=== PATIENT | male | born 1955 | race Caucasian/White ===

== ENCOUNTER 2018-10-30 18:01 | Observation (INO) | payer OTHER ==
[2018-10-30 19:48] LABS: Troponin I Less than 0.010 ng/mL (< 0.028)
[2018-10-30] MEDS ORDERED: Acetaminophen 325 MG TAB ONE (21:59)
[2018-10-30 22:09] LABS: Troponin I 0.017 ng/mL (< 0.028)
[2018-10-31] MEDS ORDERED: Ondansetron PF 4 MG/2 ML Vial IVP PRN (00:52)
[2018-10-31] MEDS: Acetaminophen 325 MG TAB PO PRN ×2 (01:36→10:02)
[2018-10-31 01:58] VITALS: BMI 29.7
[2018-10-31 04:59] LABS: #Eosinphils 0.1 thou/uL (0.0-0.7); #Lymphocytes 1.2 thou/uL (1.20-3.40); #Monocytes 0.7 thou/uL (0.11-0.59); #Neutrophils 3.2 thou/uL (1.40-6.50); %Basophils 0.2 % (0.0-1.0); %Eosinophils 1.2 % (0.0-10.0); %Lymphocytes 22.6 % (21.0-51.0); %Neutrophils 62.9 % (42.0-75.0); Hemoglobin 13.7 g/dL (14.0-18.0); Mean Corpuscular Hemoglobin 32.8 pg (27.0-31.0); Mean Corpuscular Volume 96.5 fL (78.0-98.0); Mean Platelet Volume 7.3 fL (7.4-10.4); Platelet Count 206 thou/uL (130-400); RBC Distribution Width 12.9 % (11.5-14.5); Red Blood Cell (RBC) Count 4.18 mill/uL (4.70-6.10); White Blood Cell (WBC) Count 5.1 thou/uL (4.8-10.8)
[2018-10-31 05:16] LABS: Anion Gap 12 mmol/L (10-20); BUN (Urea Nitrogen) 16 mg/dL (8.4-25.7); Calc. Creatinine Clearance 134 mL/min (70-130); Carbon Dioxide 26 mmol/L (23-31); Cardiac Risk 2.3 (Less than 4.5); Chloride 102 mmol/L (98-107); Cholesterol 154 mg/dl (< 200 Desired); Estimated GFR-MDRD Greater than 90; Glucose 188 mg/dL (80-115); HDL Cholesterol 66 mg/dL (>60 Neg Risk); LDL Cholesterol, Calculated 69 mg/dL; Potassium 3.5 mmol/L (3.5-5.1); Sodium 136 mmol/L (136-145); Triglycerides 93 mg/dL (Less than 150)
[2018-10-31] MEDS ORDERED: Dextrose 50% Abboject 50 ML SYRINGE SLOW IVP PRN (05:16)
[2018-10-31] MEDS ORDERED: Dextrose 5% in Water 1,000 ML IV PRN (05:16)
[2018-10-31] MEDS ORDERED: HumaLOG 300 UNITS/3 ML VIAL SC PRN (05:16)
[2018-10-31] MEDS ORDERED: Polyethylene Glycol 3350 17 GM Packet PO PRN (05:18)
[2018-10-31] MEDS ORDERED: Loratadine 10 MG TAB PO PRN (05:30)
[2018-10-31] MEDS ORDERED: Aspirin 325 mg Enteric Coated Tablet PO SCH (09:00)
[2018-10-31] MEDS ORDERED: Enoxaparin Sodium 40 MG/0.4 ML SYRINGE SC SCH (09:00)
[2018-10-31] MEDS ORDERED: Ezetimibe 10 MG TAB PO SCH (09:00)
[2018-10-31] MEDS ORDERED: Aspirin 325 MG TAB PO SCH (09:00)
[2018-10-31] MEDS ORDERED: OXCARBAZEPINE 1800 MG PO SCH (09:00)
[2018-10-31] MEDS ORDERED: Fenofibrate Nanocrystallized 145 MG TAB PO SCH (09:00)
[2018-10-31 11:47] VITALS: TEMP 97.9
[2018-10-31 15:39] VITALS: BP 196/91
--- NOTE | 2018-10-31 16:08 | ULT ---
CAROTID ARTERIAL DOPPLER ULTRASOUND: 10/31/18 COMPARISON: None. HISTORY: Neck pain, right sided arm weakness. TECHNIQUE: Multiplanar rangel scale sonographic imaging of the arterial structures of the neck obtained with color flow and spectral analysis. FINDINGS: Antegrade blood flow and normal arterial waveforms are documented within the carotid and vertebral sy stem bilaterally. Partially calcified plaque within distal right CCA/proximal right ICA. There is atherosclerotic calci fication within proximal left internal carotid artery and distal left common carotid artery as well. There is prominent partially calcified plaque involving the proximal left ICA. VESSEL PSV (cm/s) EDV (cm/s) Right CCA 97 15 Right ICA 128 27 Right ECA 110 13 Left CCA 120 20 Left ICA 227 47 Left ECA 122 13 ICA/CCA ratio is 1.0 on the right and 2.3 on the left. IMPRESSION: Elevated velocity within left internal carotid artery with elevated left ICA/CCA ratio. This is consi stent with high grade stenosis of left internal carotid artery which is better assessed on CT angiogr am of the neck performed 10/30/18. Vascular surgery consultation suggested. POS: SANJU
--- NOTE | 2018-10-31 16:10 | HP ---
PRIMARY CARE DOCTOR: Out of town physician. CODE STATUS: Full code. TIME OF EVALUATION: Around 12 a.m. CHIEF COMPLAINT: Right hand weakness. HISTORY OF PRESENT ILLNESS: This is a 63-year-old male patient with past medical history of diabetes, neuropathy, hypertension, kidney cancer, came to the hospital after having severe right upper extremity weakness, with no clear triggers, no alleviating factors. The patient reported that it seems to be started around 10 a.m., and has been presenting now, seems this has been improved though. There are no other significant associated symptoms, but numbness. REVIEW OF SYSTEMS: CONSTITUTIONAL: No fever, chills, or generalized weakness. RESPIRATORY: No cough, sputum production, or shortness of breath. CARDIOVASCULAR: No chest pain or palpitation. GASTROINTESTINAL: No nausea. No vomiting. No diarrhea. No abdominal pain. SITE MEDICAL DIRECTOR: The patient has no dizziness, headache, or feeling lightheaded. The patient has right hand weakness that has improved. GENITOURINARY: No burning on urination. EXTREMITIES: No leg swelling. All other systems were reviewed and negative expect for the findings as mentioned above. PAST MEDICAL HISTORY: As mentioned in the HPI. FAMILY HISTORY: The patient reported that both mother and father with heart problems and mother with hypertension. SURGICAL HISTORY: History of nephrectomy and carotid surgery. PSYCHIATRIC HISTORY: No psych history. SOCIAL HISTORY: No alcohol. No drugs. No smoking history. ALLERGIES: PHENOBARBITAL. REPORTED MEDICATIONS: 1. Claritin. 2. Aspirin. 3. Zetia. 4. Fenofibrate. 5. Gabapentin. 6. Losartan. 7. Oxtellar. 8. Levemir. 9. NovoLog. PHYSICAL EXAMINATION: VITAL SIGNS: Blood pressure 171/99 with a heart rate 72, respiratory rate of 20, pain was 4/10, and oxygen saturation 97% on room air. GENERAL APPEARANCE: The patient is alert, oriented, not in acute distress. HEENT: Eyes, normal conjunctivae. Moist oral mucosa. Anicteric. No JVD. RESPIRATORY: Bilateral air entry. No rales. No wheezing. Symmetric expansion. CARDIOVASCULAR: Normal rate. Regular rhythm. No murmurs. No gallops. No edema. ABDOMEN: Soft. Normal bowel sounds. MUSCULOSKELETAL: Baseline range of motion and strength. No tenderness. SKIN: Warm and intact. No burn or rash. No redness. EXTREMITIES: Peripheral pulses are present. Capillary refill seems to be intact. NEURO: The patient has right upper extremity weakness with change in sensory and sensation. Baseline speech. Cranial nerves seems to be intact. Symptoms reportedly improving. PSYCHIATRIC: The patient is in good mood. No anxiety. Oriented. Optimal judgment. DIAGNOSTIC DATA: Chest x-ray, no evidence of acute cardiopulmonary disease. Brain CT, no acute intracranial abnormalities. CT angiography, atherosclerosis, high-grade stenosis within the proximal left internal carotid artery. LABORATORY DATA: Labs were reviewed. His white count 5.1, hemoglobin 13.7, MCV 96.5, and platelet count 206. Troponin was negative x2. Chemistry: Sodium 138, potassium 3.4, chloride 103, carbon-dioxide 36, anion gap 12, BUN 18, creatinine 0.8. GFR greater than 90. Glucose 103, calcium 9.3, total bilirubin 0.5, AST 46, ALT 33, alkaline phosphatase 140. CK 67, troponin 0.017, CK-MB 1.0. Serum total protein 7.3, albumin 4.1, globulin 3.2. Albumin and globulin ratio is 1.3. ASSESSMENT AND PLAN: The patient was placed in the hospital with the following medical problems: 1. Transient ischemic attack: The patient presented with right upper extremity weakness, worse, unable to function with his right hand, unable to grab object. These symptoms have been improving, still having some weakness, and changes in sensation in the right upper extremity. We will do a stroke protocol, the patient has had device implanted in his chest that seems to be a loop recorder, he does not have his card with him, we will refer him to MRI MRI. The patient reported he will bring his card in the morning, requested to family. We will do echo. We will do carotid Doppler. We will follow stroke protocol, neurology evaluation. As an outpatient, reportedly has a history of atrial fibrillation, we will continue to monitor on tele. 2. History of paroxysmal atrial fibrillation: The patient reported that he has had this problem occasionally. We will monitor on tele and treat accordingly. During my examination, the patient was in normal sinus rhythm. 3. Hypokalemia: Potassium is 3.4. We will replace electrolytes as needed. 4. Deep vein thrombosis prophylaxis. 5. Uncontrolled hypertension. We will allow permissive hypertension, we will monitor, we will treat accordingly. 6. Controlled diabetes: Reconcile home medications, we will adjust treatment as needed. Sliding scale for optimal control, diabetic diet. Job ID: [id number]
[2018-10-31] MEDS ORDERED: Clopidogrel Bisulfate 75 MG TAB PO SCH (16:45)
--- NOTE | 2018-10-31 16:55 | PDOC.EVN ---
Event Note - Event Note Event Note: Patient does not need Statins. Will continue Zetia and Fenofibrate.
[2018-10-31] MEDS ORDERED: Insulin Glargine 15 UNITS in Pre-Filled Syringe 1 EACH SC SCH (21:00)
[2018-10-31] MEDS ORDERED: Gabapentin 100 MG CAP PO SCH (21:00)
[2018-10-31] MEDS ORDERED: Non-Formulary Item 1 EACH (Insulin Detemir [Levemir] 15 UNITS) SC SCH (21:00)
[2018-10-31] MEDS ORDERED: Atorvastatin Calcium 40 MG TAB PO SCH (21:00)
--- NOTE | 2018-10-31 23:12 | CON ---
DATE OF CONSULTATION: 10/31/2018 CHIEF COMPLAINT: Right hand weakness and numbness. 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 He has a known left carotid stenosis and by his description, has been followed by vascular surgeon affiliated with [facility] with a known 70% lesion that has been asymptomatic. Yesterday, he had fairly sudden onset of right hand paresthesias and weakness, and he felt that his hand, primarily on the ulnar side began to draw up with the fingers in flexed position, that lasted for some time. He presented to the hospital in [place] and was transferred here by which time his symptoms had almost completely resolved. Today, he feels that he still has a little bit of weakness involving the fourth and fifth fingers on that right hand, but otherwise he is back to baseline. He has never had any previous such episodes. No eye symptoms compatible with amaurosis fugax. No dysarthria. No other extremity symptoms. The patient takes an aspirin a day on regular basis. MEDICATIONS: The patient's home medications are; 1. Insulin. 2. Fenofibrate. 3. Ezetimibe. 4. Aspirin. 5. Oxtellar XR. 6. Losartan 50/hydrochlorothiazide 12.5. 7. Gabapentin. ALLERGIES: HE REPORTS DEVELOPING A RASH WITH PHENOBARBITAL. SOCIAL HISTORY: He does not smoke. FAMILY HISTORY: Family history is negative for any coronary artery disease or cerebrovascular disease. REVIEW OF SYSTEMS: Negative for any other TIA symptoms. Negative for any palpitations. PHYSICAL EXAMINATION: GENERAL: He has some scarring in his left upper neck, near the ankle of his jaw, without significant burn changes suggestive of the XRT that he describes. VITAL SIGNS: Heart rate 66, blood pressure 144/74, temperature is 97.9, and room air O2 sats are 96%. NECK: I am not able to really appreciate any carotid bruits. CHEST: Clear to auscultation. HEART: He has a regular rate and rhythm. 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 LABORATORY DATA: On laboratory exam, he had a hemoglobin of 13.7, white count of 5.1, and platelets 206,000. Electrolytes were normal, glucose 188, BUN 16, creatinine 0.77. Triglycerides 93, cholesterol 154 with LDL 69, and HDL 66. His head CT in [place] is read as no acute changes. The CTA of his carotids in [place] is read as an 80% left carotid stenosis. On my review, his right carotid system perhaps is a bit tortuous, but seems to be free of disease. The left carotid system have some heavy calcification and some plaque in the internal carotid system. On the axial cuts, the residual lumen looks to be more on the order of about 60% on the sagittal and coronal reconstructions. The calcified plaquing makes it very difficult to assess the lumen. I will arrange for a carotid ultrasound to assess the carotids through a different modality. The right side is essentially normal with no significant plaquing. The right internal carotid system peaks at 100 cm per second, the common at 97 for a ratio of 1.03. On the left side, the internal carotid velocities are 160, 159, and 227 with common of 100, 84, and 62 for a ratio of 2.27. There is modest amount of plaquing associated with carotid bulb and proximal internal carotid, and a modest amount of spectral broadening. IMPRESSION AND RECOMMENDATIONS: I do not think that the patient's carotid is as bad as 80%, but it may very well be bad enough to be responsible for the episode that he had yesterday, which changes the calculations on the wisdom of pursuing invasive management of his carotid. My past experience with this would be to do an endarterectomy with a vein patch angioplasty, although some advocate stenting. The patient because he has been followed for some time by vascular surgeon associated with [facility] where he is regularly followed, would prefer if he is stable to seek care there. As long as this remains his only episode, I think that is entirely reasonable. He probably does not need to be transferred inpatient to inpatient. If it is not going to be feasible for him to be evaluated soon, it might be worthwhile adding Plavix to his regimen. Job ID: [id number]
--- NOTE | 2018-11-01 00:33 | CON ---
DATE OF CONSULTATION: 10/31/2018 TYPE OF CONSULTATION: Neurology. CONSULTING PHYSICIAN: Hospitalist service. IMPRESSION: 1. 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 2. Left carotid stenosis. 3. Parotid cancer. PLAN: 1. Add Plavix. 2. Have him follow up with his vascular surgeon in [place]. HISTORY OF PRESENT ILLNESS: Mr. Kraus is a 63-year-old man, who is followed at [facility]. He had a known left carotid stenosis of around 70%. He presented with acute onset of right hand clumsiness. This was preceded by a headache. His CT of the brain did not show any acute changes. CTA showed evidence of left carotid stenosis, reportedly around 80%. The clumsiness of the hand has improved somewhat. He was on aspirin prior to this. PAST HISTORY: Parotid cancer, renal cancer, diabetes, and hypertension. ALLERGIES: PHENOBARBITAL. SOCIAL HISTORY: No tobacco or alcohol use. FAMILY HISTORY: Noncontributory. REVIEW OF SYSTEMS: No complaint of headache, nausea, vomiting, dizziness, chest pain, shortness of breath, weakness of leg, difficulty walking. PHYSICAL EXAMINATION: GENERAL: He is a healthy-appearing middle-aged man, in no distress. VITAL SIGNS: Stable. He has been afebrile. HEENT: Pupils are equal and reactive. Conjunctivae are clear. Oropharynx is clear. NECK: Supple. No lymphadenopathy. EXTREMITIES: No cyanosis or edema. NEUROLOGIC: He is alert and appropriate. His speech is fluent and clear. Cranial nerves 2 through 12 are intact. Motor exam shows good strength in all the areas. His only weakness was primarily finger adduction on the right. Cerebellar testing did not show any fix or drift. His gait is steady. Plantar responses were mute. Sensory testing shows a stocking distribution sensory loss consistent with diabetic neuropathy. SUMMARY: A middle-aged man with acute right hand weakness, this is slowly improving, appears consistent with a stroke. We would advance his antiplatelet therapy and have him follow up with his surgeon. Job ID: [id number]
--- NOTE | 2018-11-01 14:28 | DIS ---
DATE OF ADMISSION: 10/30/2018 DATE OF DISCHARGE: 10/31/2018 DISCHARGE DISPOSITION: Home. FOLLOWUP: 1. Follow up with primary care physician, Dr. Roberto Branch in one week. 2. Follow up with Neurology, Dr. Dalton in 1 to 2 weeks. 3. Follow up with primary cardiovascular surgeon at [facility], Dr. Palomo Xie in 1 week. DISCHARGE MEDICATIONS: 1. Plavix 75 mg daily. 2. Aspirin 81 mg daily. All other home medications were left unchanged. INPATIENT CONSULTANTS: 1. Neurology, Dr. Dalton. 2. Cardiovascular, Dr. Pavon. BRIEF HOSPITAL COURSE: The patient is a 63-year-old male with diabetes mellitus type 2, hypertension, presented to the emergency room with right hand weakness. Please refer to the history and physical dated 10/30/2018 for further details. The patient was admitted to the hospital with a diagnosis of TIA, rule out CVA. CT angiogram of the neck showed 80% left proximal internal carotid artery stenosis. Echocardiogram showed left ventricular ejection fraction of 60% to 65% with [id number] pulmonic regurgitation, mild tricuspid regurgitation, and mild mitral regurgitation. He was evaluated by Neurology, Dr. Dalton as well as Cardiovascular, Dr. Pavon. An attempt was made to contact primary cardiovascular surgeon at [facility], Dr. Palomo Xie without success. The patient will follow up with Dr. Xie as outpatient. Plavix has been started. He has been cleared by consultants for discharge. FINAL DIAGNOSES: 1. Transient ischemic attack. 2. Left carotid stenosis. 3. History of parotid cancer. 4. Diabetes mellitus type 2. 5. Hypertension. 6. Hypokalemia. DIAGNOSTIC TESTS: Cholesterol 154, LDL 69, and triglyceride 93. Potassium 3.4, replaced. Job ID: [id number]
== END 2018-10-31 17:39 | disposition home or self-care (01) ==
LOC: ERS 18:01 → 2SE 18:50
PROVIDERS: ADMIT Hospitalist; ATTEND Hospitalist
DX: G45.9 Transient cerebral ischemic attack, unspecified (principal); I65.22 Occlusion and stenosis of left carotid artery; I10 Essential (primary) hypertension; I48.0 Paroxysmal atrial fibrillation; E11.40 Type 2 diabetes mellitus with diabetic neuropathy, unspecified; E87.6 Hypokalemia; Z85.528 Personal history of other malignant neoplasm of kidney; Z85.818 Personal history of malignant neoplasm of other sites of lip, oral cavity, and pharynx; Z90.5 Acquired absence of kidney; Z88.8 Allergy status to other drugs, medicaments and biological substances; Z79.02 Long term (current) use of antithrombotics/antiplatelets; Z79.82 Long term (current) use of aspirin; Z79.4 Long term (current) use of insulin; Z79.899 Other long term (current) drug therapy; Z98.890 Other specified postprocedural states
CPT/HCPCS: 36415; 36416; 80048; 80061; 85025; 93306; 93880; 96372; 99285; G0378; J1650

== ENCOUNTER 2021-03-10 10:05 | Outpatient (CLI) | payer BC | END 2021-03-10 10:06 | disposition home or self-care (01) | LOC: BICULT 10:05 | PROVIDERS: ATTEND Internal Medicine Gastroenterology | DX: R94.5 Abnormal results of liver function studies (principal) | CPT/HCPCS: 76705 ==

== ENCOUNTER 2021-05-23 07:41 | Day surgery (SDC) | payer BC ==
[2021-05-18 10:40] VITALS: BMI 29.5
[2021-05-23 07:56] LABS: INR-International Normal Ratio 0.9; PTT 27.9 sec (22.9-36.1); Prothrombin Time 11.9 sec (12.0-14.7)
[2021-05-23 07:57] LABS: #Eosinphils 0.1 thou/uL (0.0-0.7); #Lymphocytes 1.2 thou/uL (1.20-3.40); #Monocytes 0.7 thou/uL (0.11-0.59); #Neutrophils 4.1 thou/uL (1.40-6.50); %Basophils 0.7 % (0.0-1.0); %Eosinophils 2.1 % (0.0-10.0); %Lymphocytes 19.4 % (21.0-51.0); %Monocytes 11.6 % (0.0-10.0); %Neutrophils 66.3 % (42.0-75.0); Hemoglobin 14.6 g/dL (14.0-18.0); Mean Corpuscular HGB CONC 33.4 g/dL (32.0-36.0); Mean Corpuscular Hemoglobin 33.9 pg (27.0-31.0); Platelet Count 273 thou/uL (130-400); RBC Distribution Width 12.3 % (11.5-14.5); Red Blood Cell (RBC) Count 4.29 mill/uL (4.70-6.10); White Blood Cell (WBC) Count 6.2 thou/uL (4.8-10.8)
[2021-05-23] MEDS ORDERED: Sodium Bicarbonate 2.5 MEQ/5 ML VIAL ONE ×2 (08:32→09:02)
[2021-05-23] MEDS ORDERED: Fentanyl 100 MCG/2 ML VIAL ONE (09:03)
[2021-05-23 09:40] VITALS: BP 159/81; TEMP 98.2
[2021-05-23] MEDS ORDERED: Acetaminophen 500 MG TAB ONE (10:26)
== END 2021-05-23 11:10 | disposition home or self-care (01) ==
LOC: ULT 07:41
PROVIDERS: ATTEND Physician Assistant Medical
PROC: 0FB23ZX Excision of Left Lobe Liver, Percutaneous Approach, Diagnostic (ICD-10-PCS; principal; 2021-05-23)
DX: K74.3 Primary biliary cirrhosis (principal); E11.9 Type 2 diabetes mellitus without complications; I10 Essential (primary) hypertension; G47.00 Insomnia, unspecified; F10.10 Alcohol abuse, uncomplicated; N40.0 Benign prostatic hyperplasia without lower urinary tract symptoms; I48.91 Unspecified atrial fibrillation; E78.00 Pure hypercholesterolemia, unspecified; Z79.4 Long term (current) use of insulin; Z79.82 Long term (current) use of aspirin; Z79.899 Other long term (current) drug therapy; Z86.010 Personal history of colon polyps; Z86.73 Personal history of transient ischemic attack (TIA), and cerebral infarction without residual deficits; Z88.8 Allergy status to other drugs, medicaments and biological substances
CPT/HCPCS: 47000; 76942; 85025; 85610; 85730; 88307; 88313; J3010

== ENCOUNTER 2021-05-31 12:02 | Outpatient (CLI) | payer BC ==
[2021-05-31 13:00] LABS: Bilirubin Neg (Negative); Blood, Urine 10 (Negative); Clarity Clear (Clear); Glucose, Urine (Dipstick) Normal (Negative); Ketone, Urine Negative (Negative); Leukocyte 25 (Negative); Nitrite Negative (Negative); Protein, Urine (Dipstick) Negative (Neg-Trace); Specific Gravity, Urine 1.015 (1.002-1.036)
[2021-05-31 13:04] LABS: Hemoglobin 14.2 g/dL (13.5-17.5); Mean Corpuscular HGB CONC 35.6 g/dL (32.0-36.0); Mean Corpuscular Hemoglobin 32.8 pg (27.0-33.0); Mean Corpuscular Volume 92.1 fl (81.2-95.1); Mean Platelet Volume 9.4 fl (7.4-10.4); Platelet Count 225 10x3/uL (150-450); RBC Distribution Width 12.3 % (11.5-14.5); Red Blood Cell (RBC) Count 4.33 10x6/uL (4.32-5.72)
[2021-05-31 13:21] LABS: Bacteria/HPF None Seen HPF (None Seen); RBC/HPF 0-3 HPF (0-3); Squamous Epithelial None Seen HPF (0-3); WBC/HPF None Seen HPF (0-3)
[2021-05-31 13:35] LABS: INR-International Normal Ratio 0.9; PTT 30.2 sec (22.0-33.0); Prothrombin Time 10.1 sec (9.5-12.1)
[2021-05-31 14:20] LABS: Anion Gap 15 mmol/L (10-20); BUN (Urea Nitrogen) 16 mg/dL (8.4-25.7); Calc. Creatinine Clearance 0 mL/min (70-130); Calcium 9.5 mg/dL (7.8-10.44); Carbon Dioxide 27 mmol/L (23-31); Chloride 86 mmol/L (98-107); Glucose 162 mg/dL (80-115); Potassium 4.1 mmol/L (3.5-5.1); Sodium 124 mmol/L (136-145)
== END 2021-05-31 12:03 | disposition home or self-care (01) ==
LOC: LABBT 12:02
PROVIDERS: ATTEND Urology
DX: Z01.818 Encounter for other preprocedural examination (principal); N40.1 Benign prostatic hyperplasia with lower urinary tract symptoms; R33.8 Other retention of urine; N99.89 Other postprocedural complications and disorders of genitourinary system; N13.8 Other obstructive and reflux uropathy
CPT/HCPCS: 80048; 81001; 85027; 85610; 85730; 87086; 93005; 93010

== ENCOUNTER 2021-06-03 08:12 | Inpatient (IN) | payer BC ==
[2021-06-03] MEDS ORDERED: Levofloxacin 500 mg/D5W 100 ml Premix Bag ONE (09:23)
[2021-06-03] MEDS ORDERED: Midazolam HCl 2 mg/2 ml Vial ONE (10:59)
[2021-06-03] MEDS ORDERED: Fentanyl 100 MCG/2 ML VIAL ONE (11:00)
[2021-06-03] MEDS ORDERED: B & O ONE (11:13)
[2021-06-03] MEDS ORDERED: PROPOFOL 200 MG/20 ML VIAL ONE (11:13)
[2021-06-03] MEDS ORDERED: hydrALAZINE 20 MG/ML VIAL ONE (13:40)
[2021-06-03] MEDS ORDERED: traMADol HCl 50 MG TAB ONE (14:08)
[2021-06-03] MEDS ORDERED: Hyoscyamine Sulfate SL 0.125 mg Tablet ONE (14:12)
[2021-06-03] MEDS ORDERED: Ibuprofen 600 MG TAB PO SCH (14:15)
[2021-06-03] MEDS ORDERED: Hyoscyamine Sulfate SL 0.125 mg Tablet SL SCH (14:15)
[2021-06-03] MEDS ORDERED: Mag-Al 1200 mg/1200 mg/30 ML UDCUP PO PRN (16:22)
[2021-06-03] MEDS ORDERED: Bisacodyl 10 MG SUPP PR PRN (16:22)
[2021-06-03] MEDS ORDERED: HumaLOG 300 UNITS/3 ML VIAL SC PRN ×2 (16:22→18:39)
[2021-06-03] MEDS ORDERED: Ondansetron PF 4 MG/2 ML Vial IVP PRN (16:22)
[2021-06-03] MEDS ORDERED: Hyoscyamine Sulfate SL 0.125 mg Tablet SL PRN (16:22)
[2021-06-03] MEDS ORDERED: Dextrose 50% Abboject 50 ML SYRINGE SLOW IVP PRN (16:22)
[2021-06-03] MEDS ORDERED: diphenhydrAMINE 25 MG CAP PO PRN (16:22)
[2021-06-03] MEDS ORDERED: Sodium Chloride 0.9% 1,000 ML IV SCH (16:22)
[2021-06-03] MEDS ORDERED: Oxybutynin 5 MG TAB PO SCH ×2 (17:15→22:00)
[2021-06-03] MEDS ORDERED: Phenazopyridine HCl 100 MG TAB PO PRN (17:37)
[2021-06-03] MEDS ORDERED: [UNRECOGNIZED DRUG - OTHER] SC PRN (17:56)
[2021-06-03] MEDS ORDERED: diphenhydrAMINE 50 MG/ML VIAL IVP PRN (18:35)
[2021-06-03 18:38] LABS: #Lymphocytes 1.4 thou/uL (1.20-3.40); #Monocytes 0.9 thou/uL (0.11-0.59); #Neutrophils 7.7 thou/uL (1.40-6.50); %Basophils 0.2 % (0.0-1.0); %Eosinophils 0.4 % (0.0-10.0); %Lymphocytes 14.1 % (21.0-51.0); %Monocytes 9.1 % (0.0-10.0); %Neutrophils 76.2 % (42.0-75.0); Hemoglobin 12.5 g/dL (14.0-18.0); Mean Corpuscular HGB CONC 35.7 g/dL (32.0-36.0); Mean Corpuscular Hemoglobin 34.5 pg (27.0-31.0); Mean Corpuscular Volume 96.8 fL (78.0-98.0); Mean Platelet Volume 6.9 fL (7.4-10.4); Platelet Count 234 thou/uL (130-400); RBC Distribution Width 11.9 % (11.5-14.5); Red Blood Cell (RBC) Count 3.63 mill/uL (4.70-6.10); White Blood Cell (WBC) Count 10.1 thou/uL (4.8-10.8)
[2021-06-03 19:00] LABS: ALT (SGPT) 50 U/L (8-55); AST (SGOT) 44 U/L (5-34); Albumin 3.6 g/dL (3.4-4.8); Alkaline Phosphatase 146 U/L (40-110); Anion Gap 14 mmol/L (10-20); BUN (Urea Nitrogen) 11 mg/dL (8.4-25.7); Bilirubin, Total 0.7 mg/dL (0.2-1.2); Calc. Creatinine Clearance 131 mL/min (70-130); Calcium 8.2 mg/dL (7.8-10.44); Carbon Dioxide 25 mmol/L (23-31); Chloride 82 mmol/L (98-107); Globulin 2.3 g/dL (2.4-3.5); Glucose 171 mg/dL (80-115); Potassium 3.6 mmol/L (3.5-5.1); Protein, Total 5.9 g/dL (5.8-8.1)
[2021-06-03] MEDS ORDERED: Prevnar 13-Val Conj/PF 0.5 ML SYRINGE IM ONE (19:15)
[2021-06-03 19:47] LABS: Sodium 117 mmol/L (136-145)
[2021-06-03] MEDS ORDERED: Loratadine 10 MG TAB PO SCH (20:00)
[2021-06-03] MEDS ORDERED: methylPREDNISolone Sod Succ/PF 125 MG/2 ML VIAL IVP SCH (20:00)
[2021-06-03] MEDS: Morphine 2 MG/ML VIAL SLOW IVP PRN ×2 (20:27→22:33)
[2021-06-03] MEDS: Polyethylene Glycol 3350 17 GM Packet PO SCH (20:59)
[2021-06-03] MEDS: Docusate 100 MG CAP PO SCH (20:59)
[2021-06-03] MEDS: Gabapentin 300 MG CAP PO SCH (21:00)
[2021-06-03] MEDS: Atorvastatin Calcium 40 MG TAB PO SCH (21:00)
[2021-06-03] MEDS ORDERED: NIFEdipine XL 60 MG TAB PO SCH (21:00)
[2021-06-03] MEDS: Lantus 1000 UNITS/10 ML VIAL SC SCH (21:01)
[2021-06-03 21:23] LABS: Anion Gap 17 mmol/L (10-20); BUN (Urea Nitrogen) 11 mg/dL (8.4-25.7); Calc. Creatinine Clearance 129 mL/min (70-130); Calcium 8.6 mg/dL (7.8-10.44); Carbon Dioxide 24 mmol/L (23-31); Chloride 83 mmol/L (98-107); Glucose 169 mg/dL (80-115); Potassium 4.7 mmol/L (3.5-5.1)
[2021-06-03 21:29] LABS: Sodium 119 mmol/L (136-145)
[2021-06-03 21:43] LABS: Troponin I Less than 0.010 ng/mL (< 0.028)
[2021-06-03] MEDS ORDERED: Fentanyl 100 MCG/2 ML VIAL SLOW IVP SCH (23:45)
[2021-06-04] MEDS: Morphine 2 MG/ML VIAL SLOW IVP PRN (00:45)
[2021-06-04 01:29] LABS: Troponin I Less than 0.010 ng/mL (< 0.028)
[2021-06-04] MEDS ORDERED: Fentanyl 100 MCG/2 ML VIAL SLOW IVP PRN (01:45)
[2021-06-04 05:07] LABS: #Lymphocytes 0.7 thou/uL (1.20-3.40); #Monocytes 0.4 thou/uL (0.11-0.59); #Neutrophils 10.6 thou/uL (1.40-6.50); %Eosinophils 0.1 % (0.0-10.0); %Lymphocytes 5.8 % (21.0-51.0); %Monocytes 3.4 % (0.0-10.0); %Neutrophils 90.7 % (42.0-75.0); Hemoglobin 12.5 g/dL (14.0-18.0); Mean Corpuscular HGB CONC 36.9 g/dL (32.0-36.0); Mean Corpuscular Hemoglobin 35.7 pg (27.0-31.0); Mean Corpuscular Volume 96.8 fL (78.0-98.0); Mean Platelet Volume 6.8 fL (7.4-10.4); Platelet Count 218 thou/uL (130-400); Red Blood Cell (RBC) Count 3.51 mill/uL (4.70-6.10); White Blood Cell (WBC) Count 11.7 thou/uL (4.8-10.8)
[2021-06-04 05:23] LABS: Anion Gap 18 mmol/L (10-20); BUN (Urea Nitrogen) 11 mg/dL (8.4-25.7); Calc. Creatinine Clearance 126 mL/min (70-130); Calcium 8.6 mg/dL (7.8-10.44); Carbon Dioxide 21 mmol/L (23-31); Chloride 85 mmol/L (98-107); Glucose 220 mg/dL (80-115); Potassium 4.1 mmol/L (3.5-5.1); Sodium 120 mmol/L (136-145)
[2021-06-04] MEDS ORDERED: Tamsulosin HCl 0.4 MG CAP PO SCH (09:00)
[2021-06-04] MEDS: NIFEdipine XL 60 MG TAB PO SCH ×2 (09:27→22:38)
[2021-06-04] MEDS: Polyethylene Glycol 3350 17 GM Packet PO SCH ×2 (09:27→22:39)
[2021-06-04] MEDS: Docusate 100 MG CAP PO SCH ×2 (09:27→22:39)
[2021-06-04] MEDS: Tamsulosin HCl 0.4 MG CAP PO SCH (09:27)
[2021-06-04] MEDS ORDERED: Tolvaptan 15 MG TAB PO SCH (12:00)
[2021-06-04] MEDS ORDERED: TOLVAPTAN 30 MG TAB PO SCH (12:15)
[2021-06-04] MEDS: Gabapentin 300 MG CAP PO SCH (22:38)
[2021-06-04] MEDS: Atorvastatin Calcium 40 MG TAB PO SCH (22:39)
[2021-06-04] MEDS: Lantus 1000 UNITS/10 ML VIAL SC SCH (22:39)
[2021-06-05 06:28] LABS: Anion Gap 18 mmol/L (10-20); BUN (Urea Nitrogen) 8 mg/dL (8.4-25.7); Calc. Creatinine Clearance 108 mL/min (70-130); Calcium 9.5 mg/dL (7.8-10.44); Carbon Dioxide 25 mmol/L (23-31); Chloride 98 mmol/L (98-107); Glucose 174 mg/dL (80-115); Potassium 4.6 mmol/L (3.5-5.1); Sodium 136 mmol/L (136-145)
[2021-06-05] MEDS ORDERED: HUMULIN R 100 UNITS in Sodium Chloride 0.9% 100 ML IVPB SCH (07:30)
[2021-06-05] MEDS: Dextrose 5% in Water 1,000 ML IV PRN ×2 (07:33→09:21)
[2021-06-05] MEDS: Dextrose 5% in Water 500 ML IV SCH ×2 (08:55→14:44)
[2021-06-05] MEDS ORDERED: HumaLOG 300 UNITS/3 ML VIAL SC SCH ×2 (09:15→18:15)
[2021-06-05 09:19] LABS: Anion Gap 21 mmol/L (10-20); BUN (Urea Nitrogen) 7 mg/dL (8.4-25.7); Calc. Creatinine Clearance 116 mL/min (70-130); Calcium 9.2 mg/dL (7.8-10.44); Carbon Dioxide 20 mmol/L (23-31); Chloride 95 mmol/L (98-107); Glucose 251 mg/dL (80-115); Potassium 3.8 mmol/L (3.5-5.1); Sodium 132 mmol/L (136-145)
[2021-06-05] MEDS: NIFEdipine XL 60 MG TAB PO SCH ×2 (09:21→21:26)
[2021-06-05] MEDS: Tamsulosin HCl 0.4 MG CAP PO SCH (09:22)
[2021-06-05] MEDS: Docusate 100 MG CAP PO SCH ×2 (09:24→22:02)
[2021-06-05] MEDS: Polyethylene Glycol 3350 17 GM Packet PO SCH ×2 (09:24→21:27)
[2021-06-05] MEDS ORDERED: Lorazepam 2 MG/ML VIAL SLOW IVP PRN (10:19)
[2021-06-05] MEDS ORDERED: OXcarbazepine 600 MG TAB PO SCH ×2 (10:30→15:00)
[2021-06-05] MEDS ORDERED: OXcarbazepine 300 MG TAB PO SCH (10:45)
[2021-06-05] MEDS: OXCARBAZEPINE 600 MG PO SCH (11:27)
[2021-06-05] MEDS ORDERED: HumaLOG 300 UNITS/3 ML VIAL SC PRN ×2 (14:05)
[2021-06-05 14:38] LABS: Anion Gap 14 mmol/L (10-20); BUN (Urea Nitrogen) 8 mg/dL (8.4-25.7); Calc. Creatinine Clearance 126 mL/min (70-130); Carbon Dioxide 27 mmol/L (23-31); Chloride 94 mmol/L (98-107); Glucose 212 mg/dL (80-115); Potassium 3.6 mmol/L (3.5-5.1); Sodium 131 mmol/L (136-145)
[2021-06-05] MEDS: OXcarbazepine 300 MG TAB PO SCH ×3 (15:49→21:25)
[2021-06-05 20:26] LABS: Anion Gap 12 mmol/L (10-20); BUN (Urea Nitrogen) 10 mg/dL (8.4-25.7); Calc. Creatinine Clearance 116 mL/min (70-130); Carbon Dioxide 30 mmol/L (23-31); Chloride 95 mmol/L (98-107); Glucose 222 mg/dL (80-115); Potassium 3.8 mmol/L (3.5-5.1); Sodium 133 mmol/L (136-145)
[2021-06-05] MEDS: Atorvastatin Calcium 40 MG TAB PO SCH (21:24)
[2021-06-05] MEDS: Gabapentin 300 MG CAP PO SCH (21:25)
[2021-06-05] MEDS: HumaLOG 300 UNITS/3 ML VIAL SC PRN (21:33)
[2021-06-05] MEDS: Lantus 1000 UNITS/10 ML VIAL SC SCH (21:35)
[2021-06-06 04:03] LABS: Anion Gap 13 mmol/L (10-20); BUN (Urea Nitrogen) 9 mg/dL (8.4-25.7); Calc. Creatinine Clearance 129 mL/min (70-130); Calcium 8.7 mg/dL (7.8-10.44); Carbon Dioxide 27 mmol/L (23-31); Chloride 96 mmol/L (98-107); Glucose 165 mg/dL (80-115); Potassium 3.5 mmol/L (3.5-5.1); Sodium 132 mmol/L (136-145)
[2021-06-06] MEDS: OXCARBAZEPINE 600 MG PO SCH (08:03)
[2021-06-06] MEDS: Docusate 100 MG CAP PO SCH ×2 (09:47→20:25)
[2021-06-06] MEDS: Tamsulosin HCl 0.4 MG CAP PO SCH (09:48)
[2021-06-06] MEDS: Polyethylene Glycol 3350 17 GM Packet PO SCH ×2 (09:48→22:37)
[2021-06-06] MEDS: OXcarbazepine 300 MG TAB PO SCH ×3 (09:49→20:31)
[2021-06-06] MEDS: NIFEdipine XL 60 MG TAB PO SCH (09:51)
[2021-06-06] MEDS: HumaLOG 300 UNITS/3 ML VIAL SC PRN ×3 (12:19→20:37)
[2021-06-06 15:43] LABS: Sodium 132 mmol/L (136-145)
[2021-06-06] MEDS: Atorvastatin Calcium 40 MG TAB PO SCH (20:25)
[2021-06-06] MEDS: NIFEdipine XL 30 MG TAB PO SCH (20:25)
[2021-06-06] MEDS: Gabapentin 300 MG CAP PO SCH (20:25)
[2021-06-06] MEDS: Lantus 1000 UNITS/10 ML VIAL SC SCH (20:38)
[2021-06-07] MEDS: hydrALAZINE 20 MG/ML VIAL SLOW IVP PRN (03:29)
[2021-06-07 04:20] LABS: Anion Gap 11 mmol/L (10-20); BUN (Urea Nitrogen) 9 mg/dL (8.4-25.7); Calc. Creatinine Clearance 128 mL/min (70-130); Calcium 8.7 mg/dL (7.8-10.44); Carbon Dioxide 30 mmol/L (23-31); Chloride 90 mmol/L (98-107); Glucose 147 mg/dL (80-115); Potassium 3.3 mmol/L (3.5-5.1); Sodium 128 mmol/L (136-145)
[2021-06-07] MEDS: Polyethylene Glycol 3350 17 GM Packet PO SCH ×2 (09:23→22:17)
[2021-06-07] MEDS: NIFEdipine XL 30 MG TAB PO SCH ×2 (09:23→20:53)
[2021-06-07] MEDS: Tamsulosin HCl 0.4 MG CAP PO SCH (09:24)
[2021-06-07] MEDS: Docusate 100 MG CAP PO SCH ×2 (09:24→22:17)
[2021-06-07] MEDS: HumaLOG 300 UNITS/3 ML VIAL SC PRN ×4 (09:27→22:30)
[2021-06-07] MEDS: OXcarbazepine 300 MG TAB PO SCH ×3 (11:17→20:52)
[2021-06-07 16:40] LABS: Anion Gap 10 mmol/L (10-20); BUN (Urea Nitrogen) 8 mg/dL (8.4-25.7); Calc. Creatinine Clearance 114 mL/min (70-130); Calcium 8.7 mg/dL (7.8-10.44); Carbon Dioxide 29 mmol/L (23-31); Chloride 92 mmol/L (98-107); Glucose 258 mg/dL (80-115); Potassium 3.5 mmol/L (3.5-5.1); Sodium 127 mmol/L (136-145)
[2021-06-07] MEDS: Atorvastatin Calcium 40 MG TAB PO SCH (20:50)
[2021-06-07] MEDS: Gabapentin 300 MG CAP PO SCH (20:51)
[2021-06-07] MEDS: Lantus 1000 UNITS/10 ML VIAL SC SCH (22:27)
[2021-06-08 06:21] VITALS: BMI 28.3
[2021-06-08 08:45] LABS: Anion Gap 12 mmol/L (10-20); BUN (Urea Nitrogen) 5 mg/dL (8.4-25.7); Calc. Creatinine Clearance 125 mL/min (70-130); Calcium 8.8 mg/dL (7.8-10.44); Carbon Dioxide 29 mmol/L (23-31); Chloride 94 mmol/L (98-107); Glucose 165 mg/dL (80-115); Potassium 3.9 mmol/L (3.5-5.1); Sodium 131 mmol/L (136-145)
[2021-06-08] MEDS: NIFEdipine XL 30 MG TAB PO SCH ×2 (09:21→21:44)
[2021-06-08] MEDS: OXcarbazepine 300 MG TAB PO SCH ×3 (09:22→21:44)
[2021-06-08] MEDS: Polyethylene Glycol 3350 17 GM Packet PO SCH ×2 (09:22→21:45)
[2021-06-08] MEDS: Tamsulosin HCl 0.4 MG CAP PO SCH (09:22)
[2021-06-08] MEDS: Docusate 100 MG CAP PO SCH ×2 (09:22→21:41)
[2021-06-08] MEDS: HumaLOG 300 UNITS/3 ML VIAL SC PRN ×2 (12:09→21:44)
[2021-06-08] MEDS: hydrALAZINE 20 MG/ML VIAL SLOW IVP PRN (12:18)
[2021-06-08] MEDS ORDERED: Acetaminophen 325 MG TAB PO PRN (14:05)
[2021-06-08] MEDS ORDERED: Fentanyl 100 MCG/2 ML VIAL ONE ×2 (14:09→16:18)
[2021-06-08] MEDS ORDERED: Ondansetron PF 4 MG/2 ML Vial ONE (14:51)
[2021-06-08] MEDS ORDERED: ePHEDrine Sulfate 50 MG/10 ML VIAL ONE (14:51)
[2021-06-08] MEDS ORDERED: PHENYLEPHRINE-NS 100 MCG/ML 10 ML SYRINGE ONE (14:51)
[2021-06-08] MEDS ORDERED: PROPOFOL 200 MG/20 ML VIAL ONE (14:51)
[2021-06-08] MEDS ORDERED: Levofloxacin 500 mg/D5W 100 ml Premix Bag ONE (15:05)
[2021-06-08] MEDS ORDERED: Ondansetron HCl/PF 4 MG/2 ML Vial IVP PRN (15:41)
[2021-06-08] MEDS ORDERED: Meperidine HCl/PF 25 MG/ML VIAL SLOW IVP PRN (15:41)
[2021-06-08] MEDS ORDERED: HYDROmorphone 2 MG/ML VIAL SLOW IVP PRN (15:41)
[2021-06-08] MEDS ORDERED: Ketorolac Tromethamine 30 MG/ML VIAL IVP PRN (15:41)
[2021-06-08] MEDS ORDERED: Promethazine HCl 25 MG/ML VIAL IVPB PRN (15:41)
[2021-06-08] MEDS ORDERED: Promethazine HCl 25 MG/ML VIAL IM PRN (15:41)
[2021-06-08] MEDS ORDERED: Meperidine HCl/PF 25 MG/ML VIAL ONE (16:21)
[2021-06-08] MEDS: Gabapentin 300 MG CAP PO SCH (21:41)
[2021-06-08] MEDS: Atorvastatin Calcium 40 MG TAB PO SCH (21:41)
[2021-06-08] MEDS: Lantus 1000 UNITS/10 ML VIAL SC SCH (21:43)
[2021-06-09] MEDS: Polyethylene Glycol 3350 17 GM Packet PO SCH (09:32)
[2021-06-09] MEDS: Docusate 100 MG CAP PO SCH (09:32)
[2021-06-09] MEDS: Tamsulosin HCl 0.4 MG CAP PO SCH (09:32)
[2021-06-09] MEDS: OXcarbazepine 300 MG TAB PO SCH (09:33)
[2021-06-09] MEDS: NIFEdipine XL 30 MG TAB PO SCH (09:34)
[2021-06-09 11:19] VITALS: BP 160/82; TEMP 98.6
== END 2021-06-09 13:24 | disposition home or self-care (01) | DRG 907 ==
LOC: SDC 08:12 → SURG B 14:51 → 2SE 19:59 → OBSVTOIN 06-04 08:37 → CCU 06-05 08:42 → SURG A 06-08 18:10
PROVIDERS: ADMIT Urology; ATTEND Urology
PROC: 0T7D8DZ Dilation of Urethra with Intraluminal Device, Via Natural or Artificial Opening Endoscopic (ICD-10-PCS; principal; 2021-06-03)
PROC: 3E1K78Z Irrigation of Genitourinary Tract using Irrigating Substance, Via Natural or Artificial Opening (ICD-10-PCS; 2021-06-04)
PROC: 0W3R8ZZ Control Bleeding in Genitourinary Tract, Via Natural or Artificial Opening Endoscopic (ICD-10-PCS; 2021-06-08)
DX: N99.820 Postprocedural hemorrhage of a genitourinary system organ or structure following a genitourinary system procedure (principal); G93.6 Cerebral edema; E22.2 Syndrome of inappropriate secretion of antidiuretic hormone; N13.8 Other obstructive and reflux uropathy; E87.2 Acidosis; N40.1 Benign prostatic hyperplasia with lower urinary tract symptoms; G40.909 Epilepsy, unspecified, not intractable, without status epilepticus; R22.0 Localized swelling, mass and lump, head; E10.40 Type 1 diabetes mellitus with diabetic neuropathy, unspecified; E87.8 Other disorders of electrolyte and fluid balance, not elsewhere classified; I25.10 Atherosclerotic heart disease of native coronary artery without angina pectoris; R31.0 Gross hematuria; Y83.8 Other surgical procedures as the cause of abnormal reaction of the patient, or of later complication, without mention of misadventure at the time of the procedure; I95.81 Postprocedural hypotension; E10.22 Type 1 diabetes mellitus with diabetic chronic kidney disease; N18.1 Chronic kidney disease, stage 1; I12.9 Hypertensive chronic kidney disease with stage 1 through stage 4 chronic kidney disease, or unspecified chronic kidney disease; R33.8 Other retention of urine; E87.6 Hypokalemia; Z28.21 Immunization not carried out because of patient refusal; Z85.89 Personal history of malignant neoplasm of other organs and systems; Z92.3 Personal history of irradiation; Z85.528 Personal history of other malignant neoplasm of kidney; Z90.5 Acquired absence of kidney; Z98.890 Other specified postprocedural states; Z79.899 Other long term (current) drug therapy; Z83.71 Family history of colonic polyps; Z79.82 Long term (current) use of aspirin; Z79.4 Long term (current) use of insulin; Z88.8 Allergy status to other drugs, medicaments and biological substances
CPT/HCPCS: 36415; 36416; 71045; 80048; 80053; 82533; 83930; 83935; 84443; 84484; 85025; 93005; 93010; 93306; 96374; 96375; 96376; G0378; J0360; J1815; J1956; J2175; J2250; J2270; J2405; J2597; J2704; J2930; J3010; J7070; L8699

== ENCOUNTER 2022-02-10 07:56 | Outpatient (CLI) | payer BC | END 2022-02-10 07:57 | disposition home or self-care (01) | LOC: ULT 07:56 | PROVIDERS: ATTEND Physician Assistant Medical | DX: R74.8 Abnormal levels of other serum enzymes (principal) | CPT/HCPCS: 76705 ==

== ENCOUNTER 2022-08-02 09:46 | Outpatient (CLI) | payer MEDICARE | END 2022-08-02 09:47 | disposition home or self-care (01) | LOC: ULT 09:46 | PROVIDERS: ATTEND Physician Assistant Medical | DX: E55.9 Vitamin D deficiency, unspecified (principal); K74.3 Primary biliary cirrhosis; R74.8 Abnormal levels of other serum enzymes; R94.5 Abnormal results of liver function studies; I10 Essential (primary) hypertension | CPT/HCPCS: 76705 ==